=== PATIENT | female | born 1980 | race Two or more races ===

== ENCOUNTER → 2022-08-03 08:35 | Outpatient (BNVA) | payer OTHER, SELFPAY | PROVIDERS: PCP Internal Medicine; Visit Provider Nurse Practitioner Family | DX: R25.3 Fasciculation (principal); R25.1 Tremor, unspecified | CPT/HCPCS: 99202 ==

== ENCOUNTER 2022-10-10 11:21 | Outpatient (REF) | payer OTHER, SELFPAY ==
--- NOTE | ~2022-10-10 | MR_ITS ---
EXAMINATION: MR BRAIN WITHOUT AND WITH CONTRAST CLINICAL INFORMATION: Fasciculations and tremor of tongue. COMPARISON: There are no prior studies available for comparison. TECHNIQUE: Multiplanar, multisequence MRI of the brain was obtained before and after the intravenous administration of 6.5 mL Gadavist. FINDINGS: No diffusion abnormalities are identified to suggest an acute or subacute infarct. No mass effect or midline shift is seen. The ventricles and sulci are normal in size. There is relatively symmetric increased signal in the basal ganglia on the T1 images bilaterally. There are also a few scattered foci of hyperintense T2 and FLAIR signal in the periventricular and subcortical white matter. No extra-axial fluid collections are seen. Equivocal enhancement in the left cerebral peduncle is likely artifact versus a small developmental venous anomaly/capillary telangiectasia. On postcontrast imaging, there is no other abnormal parenchymal or leptomeningeal enhancement. No pathologic magnetic susceptibility artifact is identified on the gradient refocused acquisition. The cerebellar tonsils have normal contour and position, and the craniocervical junction appears normal. Marrow signal and midline structures are normal. The major intracranial flow-voids at the level of the [place] of [place] are preserved. The dural venous sinus flow-voids are maintained. The nasal septum is deviated to the left, with a left-sided spur. The mastoid air cells and paranasal sinuses are well-aerated. MR/MR head/brain wo/w con IMPRESSION: 1. There are no acute bleeds or territorial infarcts. There are no masses or areas of abnormal enhancement. Small foci of scattered deep white matter foci of hyperintensity may be consistent with sequelae of migraine, vasculitis or early/mild microvascular ischemic changes. 2. There is increased T1 signal in the basal ganglia bilaterally, which may suggest underlying hepatic dysfunction. Correlate clinically.
== END 2022-10-10 11:22 | disposition home or self-care (01) ==
LOC: HO.MRI 11:21
PROVIDERS: PCP Internal Medicine; Visit Provider Nurse Practitioner Family
DX: R25.3 Fasciculation (principal); R25.1 Tremor, unspecified; K74.60 Unspecified cirrhosis of liver; R41.3 Other amnesia
CPT/HCPCS: 70553; A9585

== ENCOUNTER 2022-11-16 11:00 | Outpatient (AMB) | payer OTHER, SELFPAY ==
--- NOTE | 2022-11-16 11:01 | A.OFFVIS_ITS ---
Intake Vital Signs 11/16/22 11:02 Height 5 ft 4 in Weight 150 lb 6 oz BMI 25.8 BP 124/80 Blood Pressure Location Rt brachial Position Sitting Pulse 88 Pulse Source Pulse Oximeter Pulse Oximetry (%) 99 Oxygen Delivery Method Room Air Intake Visit Reasons: 3m follow up EYE TWITCHING - Confirmed Intake Note: Patient presents for 3 month follow up eye twitching. Patient states I had my Brain MRI and I'm here for my results,they didn't call me right away, so I'm assuming it's ok Allergies amoxicillin Allergy (Unknown, Verified 11/16/22 11:04) Rash milk Allergy (Unknown, Verified 11/16/22 11:04) Stomach Upset Seasonal Allergies Allergy (Unknown, Verified 11/16/22 11:04) Unknown Decongestant Formula Allergy (Unknown, Uncoded 11/16/22 11:04) Unknown Medication List - Last Reconciled 11/16/22 by TREVON Marquez albuterol sulfate 90 mcg/actuation (Ventolin HFA) 2 puffs inhalation Q4H PRN benzonatate 100 mg PO TID cholecalciferol (vitamin D3) (Vitamin D3) 25 mcg PO DAILY diphenhydramine HCl (Banophen) 25 mg PO BEDTIME fluticasone propion-salmeterol 230-21 mcg/actuation 2 puffs inhalation BID fluticasone propionate 50 mcg/actuation 2 sprays intranasal DAILY folic acid 1 mg PO DAILY furosemide 40 mg PO BID lactulose 30 mL PO DAILY PRN loratadine 10 mg PO DAILY melatonin 3 mg PO BEDTIME multivitamin with folic acid 400 mcg (Daily-Dana (with folic acid)) 1 tab PO DAILY pantoprazole 40 mg PO BID spironolactone 100 mg PO DAILY thiamine HCl (vitamin B1) 100 mg PO DAILY triamcinolone acetonide 0.1% appl topical BID HPI HPI Comments History of Present Illness Details 42-yr-old female presents for f/u visit. She has not had any recent eye/facial twitches. States her tongue twitches- states this has been happening for sometime and thinks she is just used to it. She does notice a BUE mild tremor. She does endorse some brain fog- easily forgets things, some difficulty following conversations- needing to ask others to clarify/repeat himself. She was having more balance issues when she initially left the hospital in late June, but this is better. She She is trying to eat and drink well. She has not had alcohol since leaving the hospital in late June. She has been having difficulty tolerating her iron tabs, however she states her GI specialist has told her that she is not really anemic but rather her ammonia levels are elevated and should take Lactulose reguallry. She has not started the lactulose as was worried this would tax her liver. She has been referred to the [facility] for to pursue possible liver transplant. 10/10/22, MR/MR head/brain wo/w con IMPRESSION: 1. There are no acute bleeds or territorial infarcts. There are no masses or areas of abnormal enhancement. Small foci of scattered deep white matter foci of hyperintensity may be consistent with sequelae of migraine, vasculitis or early/mild microvascular ischemic changes. ? 2. There is increased T1 signal in the basal ganglia bilaterally, which may suggest underlying hepatic dysfunction. Correlate clinically. [facility] Medical History (Updated 08/14/22 @ 19:00 by TREVON Marquez) Anemia Arthritis Asthma Cirrhosis of liver COPD (chronic obstructive pulmonary disease) Fatty liver GERD (gastroesophageal reflux disease) HTN (hypertension) Rash Surgical History H/O tooth extraction Family History Father Diabetes Hypertension CKD (chronic kidney disease) Maternal Grandfather Lung cancer CAD (coronary artery disease) Hypertension Maternal Grandmother Diabetes Paternal Grandfather Hypertension CAD (coronary artery disease) Paternal Grandmother No problems noted. Social History Alcohol intake: former Patient Tobacco Use Status: Current someday Tobacco user Review of Systems Const All systems reviewed & are unremarkable except as noted in HPI and below Physical Exam Vital Signs: Last Vital Signs Pulse 88 11/16/22 11:02 BP 124/80 11/16/22 11:02 Pulse Ox 99 11/16/22 11:02 Oxygen Delivery Method Room Air 11/16/22 11:02 BMI result Body Mass Index 25.8 Const General: cooperative and no acute distress Orientation/consciousness: patient oriented x3 HEENT Head: Yes normocephalic Resp Effort & Inspection: normal respiratory effort and able to speak in complete sentences Neuro Other: No facial twitching/fasciculation. On protrusion- mild lingual tremor at midline w/o deviation General: patient oriented x3, gait normal and CN's II-XI intact bilaterally Cognition (Neuro): normal cognition Motor exam (neuro): 5/5 motor strength present throughout Psych Appearance: grossly normal Mental Status: mental status grossly normal Speech and movement: Normal speech and movement present Affect: normal affect Attitude: cooperative Thought process: Normal thought process present Thought content: Normal thought content present Insight: Good insight present (Psych) Judgement: Good judgement present (Psych) Assessment & Plan Assessment & Plan (1) Fasciculations: Code(s): R25.3 - Fasciculation (2) Tremor of tongue: Code(s): R25.1 - Tremor, unspecified (3) Cirrhosis of liver: Code(s): K74.60 - Unspecified cirrhosis of liver (4) Memory difficulties: Code(s): R41.3 - Other amnesia Plan Reviewed brain MRI report: Small foci of scattered deep white matter foci of hyperintensity. Increased T1 signal in the basal ganglia bilaterally, which may suggest underlying hepatic dysfunction. Pt's symptoms of fasiculation and tremor have improved, although she is still experiencing brain fog and some cognitive difficulties. Encouraged pt to continue optimizing good self-care, healthy eating/drinking, abstaining from alcohol intake. Discussed that chronic alcohol abuse may lead to chronic tremor even after alcohol cessation. I advised her to start Lactulose per GI's instructions to reduce risk for hepatic encephalopathy. Reviewed that lactulose is primarily excreted via the colon. f/u in 6 months or sooner prn. Coding Level of Care Code Est Pt Level 3 (33806) Diagnoses Fasciculations R25.3 Tremor of tongue R25.1 Cirrhosis of liver K74.60 Memory difficulties R41.3
[2022-11-16 11:02] VITALS: BP 124/80; PULSE 88; O2SAT 99; BMI 25.8
== END 2022-11-16 11:58 | disposition home or self-care (01) ==
PROVIDERS: Visit Provider Nurse Practitioner Family
DX: R25.3 Fasciculation (principal); R25.1 Tremor, unspecified; K74.60 Unspecified cirrhosis of liver; R41.3 Other amnesia
CPT/HCPCS: 99213

== ENCOUNTER → 2022-11-16 11:00 | Outpatient (BNVA) | payer OTHER, SELFPAY | PROVIDERS: Visit Provider Nurse Practitioner Family | DX: R25.3 Fasciculation (principal); R25.1 Tremor, unspecified; R41.3 Other amnesia; K74.60 Unspecified cirrhosis of liver | CPT/HCPCS: 99212 ==

== ENCOUNTER 2023-09-08 11:35 | Outpatient (AMB) | payer OTHER, SELFPAY ==
--- NOTE | 2023-09-08 11:39 | A.OFFVIS_ITS ---
Vital Signs 09/08/23 11:46 Height 5 ft 2 in Weight 170 lb 6 oz BMI 31.2 BP 116/62 Blood Pressure Location Rt brachial Position Sitting Pulse 88 Pulse Source Pulse Oximeter Pulse Oximetry (%) 98 Oxygen Delivery Method Room Air Intake Visit Reasons: 3m follow up EYE TWITCHING-LVM Intake Note: Patient presents for 3 months f/u. Allergies amoxicillin Allergy (Unknown, Verified 09/08/23 11:43) Rash milk Allergy (Unknown, Verified 09/08/23 11:43) Stomach Upset Seasonal Allergies Allergy (Unknown, Verified 09/08/23 11:43) Unknown Decongestant Formula Allergy (Unknown, Uncoded 11/16/22 11:04) Unknown Medication List - Last Reconciled 09/08/23 by TREVON Marquez albuterol sulfate 90 mcg/actuation (Ventolin HFA) 2 puffs inhalation Q4H PRN cholecalciferol (vitamin D3) (Vitamin D3) 25 mcg PO DAILY fluticasone propion-salmeterol 230-21 mcg/actuation 2 puffs inhalation BID fluticasone propionate 50 mcg/actuation 2 sprays intranasal DAILY lactulose 30 mL PO DAILY PRN melatonin 3 mg PO BEDTIME multivitamin with folic acid 400 mcg (Daily-Dana (with folic acid)) 1 tab PO DAILY spironolactone 100 mg PO DAILY HPI Comments Details: 42-yr-old female presents for f/u visit. Pt reports she was recently having difficulty sleeping, fatigue- but a bit better now. She was taking iron supplement, however it caused constipation and rectal bleeding. So she switched her iron to an OTC vegetable based iron supplement- has not had constipation or rectal bleeding since. She has not been taking lactulose regularly- was worried that it would cause uncontrolled loose stools as she returned to work. But wonders if she should be taking this. She has f/u GI appt in Oct. Her last serum ammonia level was just slightly elevated . She is noticing more STM lapses difficulties. She has not noticed any tremor since she stopped drinking in June 2022. She states she does not have any cravings. She has not noticed any muscle twitching. 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 [facility] Medical History (Updated 09/08/23 @ 12:14 by TREVON Marquez) Fatty liver Rash Cirrhosis of liver HTN (hypertension) Anemia Arthritis Asthma COPD (chronic obstructive pulmonary disease) GERD (gastroesophageal reflux disease) Surgical History H/O tooth extraction Family History Father Diabetes Hypertension CKD (chronic kidney disease) Maternal Grandfather Lung cancer CAD (coronary artery disease) Hypertension Maternal Grandmother Diabetes Paternal Grandfather Hypertension CAD (coronary artery disease) Paternal Grandmother No problems noted. Social History Alcohol intake: former Patient Tobacco Use Status: Current someday Tobacco user Review of Systems Const All systems reviewed & are unremarkable except as noted in HPI and below Physical Exam Vital Signs: Last Vital Signs Pulse 88 09/08/23 11:46 BP 116/62 09/08/23 11:46 Pulse Ox 98 09/08/23 11:46 Oxygen Delivery Method Room Air 09/08/23 11:46 BMI result Body Mass Index 31.2 Const General: cooperative and no acute distress Orientation/consciousness: patient oriented x3 HEENT Head: Yes normocephalic Resp Effort & Inspection: normal respiratory effort and able to speak in complete sentences Neuro General: patient oriented x3, gait normal and CN's II-XI intact bilaterally Cognition (Neuro): normal cognition Motor exam (neuro): 5/5 motor strength present throughout Psych Appearance: grossly normal Mental Status: mental status grossly normal Speech and movement: Normal speech and movement present Affect: normal affect Attitude: cooperative Thought process: Normal thought process present Thought content: Normal thought content present Insight: Good insight present (Psych) Judgement: Good judgement present (Psych) Assessment & Plan Assessment & Plan (1) Abnormal brain MRI: Code(s): R90.89 - Other abnormal findings on diagnostic imaging of central nervous system Category: Medical (2) Memory difficulties: Code(s): R41.3 - Other amnesia Category: Medical (3) Cirrhosis of liver: Code(s): K74.60 - Unspecified cirrhosis of liver Category: Medical (4) Fasciculations: Code(s): R25.3 - Fasciculation Category: Medical (5) Sleep difficulties: Code(s): G47.9 - Sleep disorder, unspecified Category: Medical Plan Pt's symptoms of fasiculation and tremor have improved, although she is still experiencing brain fog and some cognitive difficulties Will order f/u Brain MRI to assess status of intracerebral lesions within the deep white matter and bilateral basal ganglia. Encouraged pt to continue optimizing good self-care, healthy eating/drinking, abstaining from alcohol intake. Encouraged pt to resume Lactulose per GI's instructions to reduce risk for hepatic encephalopathy. Reviewed that lactulose is primarily excreted via the colon. f/u in 6 months or sooner prn. Orders: Orders MR head/brain wo con 09/08/23 K74.60 - Unspecified cirrhosis of liver, R90.89 - Other abnormal findings on diagnostic imaging of central nervous system Coding Level of Care Code Est Pt Level 4 (35547) Diagnoses Abnormal brain MRI R90.89 Memory difficulties R41.3 Cirrhosis of liver K74.60 Fasciculations R25.3 Sleep difficulties G47.9
[2023-09-08 11:46] VITALS: BP 116/62; PULSE 88; O2SAT 98; BMI 31.2
== END 2023-09-08 12:33 | disposition home or self-care (01) ==
PROVIDERS: PCP Internal Medicine; Visit Provider Nurse Practitioner Family
DX: R90.89 Other abnormal findings on diagnostic imaging of central nervous system (principal); R41.3 Other amnesia; K74.60 Unspecified cirrhosis of liver; R25.3 Fasciculation; G47.9 Sleep disorder, unspecified
CPT/HCPCS: 99214

== ENCOUNTER → 2023-09-08 11:35 | Outpatient (BNVA) | payer OTHER, SELFPAY | PROVIDERS: PCP Internal Medicine; Visit Provider Nurse Practitioner Family | DX: R90.89 Other abnormal findings on diagnostic imaging of central nervous system (principal); R41.3 Other amnesia; R25.3 Fasciculation; G47.9 Sleep disorder, unspecified; K74.60 Unspecified cirrhosis of liver | CPT/HCPCS: 99212 ==

== ENCOUNTER 2023-11-29 13:01 | Outpatient (REF) | payer OTHER, SELFPAY ==
--- NOTE | ~2023-11-29 | MR_ITS ---
EXAMINATION: MR BRAIN WITHOUT CONTRAST CLINICAL INFORMATION: Unspecified cirrhosis of liver, brain fog, cognitive diff f/u COMPARISON: MRI of the brain with and without contrast 10/10/2022 TECHNIQUE: Multiplanar multisequence MR imaging of the brain was obtained without intravenous contrast. FINDINGS: There is no acute infarct on diffusion-weighted imaging. There is no intracranial hemorrhage on iron-sensitive imaging. No extra-axial collection or mass effect/herniation. There are several scattered foci of nonspecific supratentorial white matter T2/FLAIR signal abnormality. Redemonstration of T1 hyperintense signal involving the globi pallidi, compatible with sequela of chronic liver dysfunction. No hydrocephalus. The ventricles are normal in morphology and size. The major flow voids at the skull base are preserved. The midline structures are normal. The cerebellar tonsils are normally positioned. The craniocervical junction is normal. Marrow signal is within normal limits. The visualized soft tissues are without significant abnormality. No signal abnormality within the paranasal sinuses or within the mastoid air cells. MR/MR head/brain wo con IMPRESSION: 1. No new or acute intracranial abnormality. 2. Redemonstration of T1 hyperintense signal involving the globi pallidi, compatible with sequela of chronic liver dysfunction. Electronically signed by: Luis Meade MD 12/20/2023 02:45 AM EDT
== END 2023-11-29 13:02 | disposition home or self-care (01) ==
LOC: HO.MRI 13:01
PROVIDERS: PCP Internal Medicine; Visit Provider Nurse Practitioner Family
DX: K74.60 Unspecified cirrhosis of liver (principal); R90.89 Other abnormal findings on diagnostic imaging of central nervous system
CPT/HCPCS: 70551